=== PATIENT | female | born 1995 | race Two or more races ===

== ENCOUNTER 2024-10-15 08:45 | Emergency (ER) | payer OTHER ==
[~2024-10-15] VITALS: Ht 165.1 cm; Wt 113.4 kg
[2024-10-15] MEDS ORDERED: LIDOCAINE 1%-EPI 1:100,000 20 ML VIAL ONE (09:46)
[2024-10-15] MEDS: LIDOCAINE 1%-EPI 1:100,000 20 ML VIAL IJ ONE (09:54)
[2024-10-15 10:55] VITALS: BP 148/85; TEMP 98.7; O2SAT 100
== END 2024-10-15 10:56 | disposition home or self-care (01) ==
LOC: ER 08:45
DX: M24.412 Recurrent dislocation, left shoulder (principal)
CPT/HCPCS: 99284; 23650; 73020 ×2; J3490; A4606; A4663